=== PATIENT | female | born 1955 | race Caucasian/White ===

== ENCOUNTER 2017-04-07 14:32 | Emergency (ER) | payer BC ==
[~2017-04-07] VITALS: Ht 154.9 cm; Wt 52.2 kg
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
--- NOTE | 2017-04-07 15:12 | NUR ---
DR. ANDREW AT BS
[2017-04-07] MEDS ORDERED: TDAP [DIPH/PERTUSSIS/TET] 0.5 ML VIAL IM ONE ×2 (15:30→15:33)
[2017-04-07] MEDS ORDERED: HYDROCODONE/APAP 5/325MG 1 EACH TABLET ONE (17:17)
[2017-04-07] MEDS ORDERED: ONDANSETRON 4 MG TAB.RAPDIS ONE (17:17)
[2017-04-07 17:25] VITALS: BP 118/70
--- NOTE | 2017-04-07 17:25 | NUR ---
Patient discharged to home in stable condition. Written and verbal after care instructions given. Patient verbalizes understanding of instruction.
[2017-04-07] MEDS ORDERED: HYDROCODONE/APAP 5/325MG 1 EACH TABLET PO ONE (17:30)
[2017-04-07] MEDS ORDERED: ONDANSETRON 4 MG TAB.RAPDIS SL ONE (17:30)
== END 2017-04-07 17:26 | disposition home or self-care (01) ==
LOC: ER 14:36
DX: S02.2XXA Fracture of nasal bones, initial encounter for closed fracture (principal); S00.83XA Contusion of other part of head, initial encounter; F32.9 Major depressive disorder, single episode, unspecified; M50.221 Other cervical disc displacement at C4-C5 level; M50.222 Other cervical disc displacement at C5-C6 level; M50.321 Other cervical disc degeneration at C4-C5 level; M50.322 Other cervical disc degeneration at C5-C6 level; Z23 Encounter for immunization; W01.0XXA Fall on same level from slipping, tripping and stumbling without subsequent striking against object, initial encounter; Y92.480 Sidewalk as the place of occurrence of the external cause; Y93.89 Activity, other specified; Y99.8 Other external cause status
CPT/HCPCS: 70450; 70486; 90471; 90715; 99284; A4606; A6402; Q0162; Z7610